=== PATIENT | female | born 1960 | race Two or more races ===

== ENCOUNTER 2024-02-05 22:48 | Emergency (ER) | payer OTHER ==
[~2024-02-05] VITALS: Ht 157.5 cm; Wt 49.9 kg
[~2024-02-05 22:48] MED LIST: TOPROL XL25 MG PO
[2024-02-05] MEDS ORDERED: FAMOTIDINE/PF 20 MG in 0.9 % SODIUM CHLORIDE 8 ML IV PUSH STA (23:18)
[2024-02-05] MEDS ORDERED: PIPERACILLIN/TAZOBACTAM SODIUM 3.375 GM VIAL IV ONE ×2 (23:24→23:30)
[2024-02-05] MEDS ORDERED: BARIUM SULFATE 450 ML ORAL.SUSP PO ONE (23:24)
[2024-02-05] MEDS ORDERED: FAMOtidine 200mg/20ml VIAL ONE (23:24)
[2024-02-05] MEDS ORDERED: KETOROLAC TROMETHAMINE 30 MG VIAL ONE (23:24)
[2024-02-05] MEDS ORDERED: KETOROLAC TROMETHAMINE 30 MG VIAL IV ONE (23:30)
[2024-02-05] MEDS ORDERED: 0.9 % SODIUM CHLORIDE 1,000 ML IV SCH (23:30)
[2024-02-05 23:50] LABS: HEMATOCRIT 38.7 % (36.0-45.00); HEMOGLOBIN 12.7 g/dL (12.0-15.00); MEAN CELL VOLUME 86.6 fL (80.00-100.00); MEAN CORPUSCULAR HEMOGLOBIN 28.5 pg (27.00-32.0); MEAN CORPUSCULAR HGB CONC 32.8 g/dl (32.0-36.0); PLATELET COUNT 260 K/uL (150-450); RED BLOOD COUNT 4.47 M/uL (4.00-6.00)
[2024-02-06 00:13] LABS: ALBUMIN 3.6 gm/dL (3.4-5.0); BILIRUBIN TOTAL 0.48 mg/dL (0.3-1.2); BILIRUBIN,CONJUGATED 0.13 mg/dL (0.0-0.2); BILIRUBIN,UNCONJUGATED 0.35 mg/dL (0.0-0.6); CALCIUM 8.7 mg/dL (8.5-10.1); CREATININE SERUM 0.92 mg/dL (0.55-1.02); GFR 61.26; POTASSIUM 3.57 mEq/L (3.5-5.1); TOTAL PROTEIN 7.6 gm/dL (6.4-8.2)
[2024-02-06 01:03] LABS: PH,URINE 6.5 (5.0-8.0); URINE APPEARANCE Clear; URINE BILIRRUBIN Negative (NEGATIVE); URINE BLOOD Negative; URINE COLOR Yellow; URINE GLUCOSE Negative (NEGATIVE); URINE LEUKOCYTE Trace; URINE NITRATE Negative; URINE PROTEIN Negative (NEGATIVE)
[2024-02-06 01:07] LABS: URINE BACTERIA 2918.9 uL (0.0-1933); URINE EPITHELIAL CELLS 1.5 uL (0.0-38.8); URINE RBC 10.9 uL (0.0-20.8); URINE WBC 21.4 uL (0.0-23.2)
[2024-02-06] MEDS ORDERED: ONDANSETRON ODT4 MG PO (05:17)
[2024-02-06] MEDS ORDERED: LEVSIN/SL0.125 MG SL (05:17)
[2024-02-06] MEDS ORDERED: CIPRO500 MG PO (05:17)
[2024-02-06] MEDS ORDERED: INTESTINEX680 M2 PO (05:20)
== END 2024-02-06 05:28 ==
LOC: ER 22:48
PROVIDERS: General Practice
DX: U07.1 COVID-19 (principal); R10.32 Left lower quadrant pain; I10 Essential (primary) hypertension
CPT/HCPCS: 36415; 74177; 96365; 96366; 99284; J1885; J2543; J7030; Q9965

== ENCOUNTER 2024-02-20 09:46 | Outpatient (CLI) | payer OTHER ==
[~2024-02-20 09:46] MED LIST changes: +CIPRO500 MG PO; +INTESTINEX680 M2 PO; +LEVSIN/SL0.125 MG SL; +ONDANSETRON ODT4 MG PO
[2024-02-20 11:05] LABS: HEMATOCRIT 38.1 % (36.0-45.00); HEMOGLOBIN 12.7 g/dL (12.0-15.00); MEAN CELL VOLUME 86.4 fL (80.00-100.00); MEAN CORPUSCULAR HEMOGLOBIN 28.8 pg (27.00-32.0); MEAN CORPUSCULAR HGB CONC 33.4 g/dl (32.0-36.0); PLATELET COUNT 269 K/uL (150-450); RED BLOOD COUNT 4.42 M/uL (4.00-6.00); RED CELL DISTRIBUTION WIDTH 13.7 % (11.5-14.5)
[2024-02-20 11:06] LABS: INR 1.04; PARTIAL THROMBOPLASTIN TIME 22.5 SECONDS (22.0-34.0); PROTHROMBIN TIME 10.9 SECONDS (9.0-11.5)
[2024-02-20 11:31] LABS: ALBUMIN 3.7 gm/dL (3.4-5.0); BILIRUBIN TOTAL 0.97 mg/dL (0.3-1.2); CALCIUM 9.2 mg/dL (8.5-10.1); CREATININE SERUM 0.7 mg/dL (0.55-1.02); GFR 83.72; GLOBULINA 3.1 G/DL (2.4-3.5); POTASSIUM 3.63 mEq/L (3.5-5.1); TOTAL PROTEIN 6.8 gm/dL (6.4-8.2)
== END 2024-02-20 09:47 | disposition home or self-care (01) ==
LOC: LAB 09:46
PROVIDERS: ATTEND Internal Medicine
DX: C18.7 Malignant neoplasm of sigmoid colon (principal); K62.7 Radiation proctitis; R74.8 Abnormal levels of other serum enzymes

== ENCOUNTER 2024-02-20 10:03 | Outpatient (CLI) | payer OTHER | END 2024-02-20 10:04 | disposition home or self-care (01) | LOC: TOM 10:03 | PROVIDERS: ATTEND Internal Medicine | DX: C18.7 Malignant neoplasm of sigmoid colon (principal); R10.13 Epigastric pain; K63.4 Enteroptosis; R19.4 Change in bowel habit | CPT/HCPCS: 74178; Q9965 ==

== ENCOUNTER 2024-02-27 09:30 | Inpatient (IN) | payer OTHER ==
[2024-02-27 09:09] LABS: URINE APPEARANCE Clear; URINE BILIRRUBIN Negative (NEGATIVE); URINE BLOOD Small; URINE COLOR Yellow; URINE GLUCOSE Negative (NEGATIVE); URINE KETONE Negative (NEGATIVE); URINE LEUKOCYTE Small; URINE NITRATE Negative; URINE PROTEIN Negative (NEGATIVE); URINE UROBILINOGEN 0.2 E.U./dl
[2024-02-27 09:10] LABS: URINE BACTERIA 31.4 uL (0.0-1933); URINE RBC 14.1 uL (0.0-20.8); URINE WBC 65.4 uL (0.0-23.2)
[2024-02-27 09:42] LABS: HEMATOCRIT 41.1 % (36.0-45.00); HEMOGLOBIN 13.3 g/dL (12.0-15.00); MEAN CELL VOLUME 87.7 fL (80.00-100.00); MEAN CORPUSCULAR HEMOGLOBIN 28.4 pg (27.00-32.0); MEAN CORPUSCULAR HGB CONC 32.4 g/dl (32.0-36.0); PLATELET COUNT 276 K/uL (150-450); RED BLOOD COUNT 4.68 M/uL (4.00-6.00); RED CELL DISTRIBUTION WIDTH 13.8 % (11.5-14.5)
[2024-02-27 09:46] LABS: INR 0.97; PARTIAL THROMBOPLASTIN TIME 27.1 SECONDS (22.0-34.0); PROTHROMBIN TIME 10.2 SECONDS (9.0-11.5)
[2024-02-27 09:52] LABS: ALBUMIN 3.8 gm/dL (3.4-5.0); BILIRUBIN TOTAL 0.47 mg/dL (0.3-1.2); CALCIUM 9.4 mg/dL (8.5-10.1); CREATININE SERUM 0.76 mg/dL (0.55-1.02); GFR 76.14; GLOBULINA 3.5 G/DL (2.4-3.5); POTASSIUM 4.07 mEq/L (3.5-5.1); TOTAL PROTEIN 7.3 gm/dL (6.4-8.2)
[2024-02-27] MEDS ORDERED: CRESTOR 10MG (09:53)
[2024-02-27] MEDS ORDERED: LOPID 600MG (09:53)
[2024-03-05] MEDS ORDERED: CEFTRIAXONE SODIUM 2,000 MG VIAL ONE (09:52)
[2024-03-05] MEDS ORDERED: METRONIDAZOLE/SODIUM CHLORIDE 500 MG/100 ML PIGGYBACK IV ONE ×2 (09:52→15:52)
[2024-03-05] MEDS ORDERED: GEMFIBROZIL600 MG (10:15)
[2024-03-05] MEDS ORDERED: ROSUVASTATIN CA10 MG (10:15)
[2024-03-05] MEDS ORDERED: MAXIMUM D3325 MCG (10:15)
[2024-03-05] MEDS ORDERED: BUPIVACAINE HCL/MPF 0.5% 30ML VIAL ONE (11:19)
[2024-03-05] MEDS ORDERED: LIDOCAINE HCL 1%/EPINEPHRINE 20ML VIAL IJ ONE ×2 (11:20→12:00)
[2024-03-05] MEDS ORDERED: BUPIVACAINE HCL 30 ML VIAL IJ ONE (12:00)
[2024-03-05] MEDS ORDERED: CEFTRIAXONE SODIUM 2,000 MG in 0.9 % SODIUM CHLORIDE 50 ML IV ONE (12:00)
[2024-03-05] MEDS ORDERED: METRONIDAZOLE/SODIUM CHLORIDE 200 ML IV ONE (12:00)
[2024-03-05] MEDS ORDERED: 0.9 % SODIUM CHLORIDE 1,000 ML IV SCH (13:30)
[2024-03-05] MEDS ORDERED: MORPHINE SULFATE 4 MG/ML CARTRIDGE IV PRN (13:30)
[2024-03-05] MEDS ORDERED: DEXTROSE 50 % IN WATER 0.5 G/ML DISP.SYRIN IV PRN (13:30)
[2024-03-05] MEDS ORDERED: OxyCODONE HCL 5 MG TABLET (ROXICODONE) PO PRN (13:30)
[2024-03-05] MEDS ORDERED: ONDANSETRON HCL 2 MG/ML VIAL IV PRN (13:30)
[2024-03-05] MEDS ORDERED: SUGAMMADEX SODIUM 200 MG/2 ML VIAL IV ONE (13:43)
[2024-03-05] MEDS ORDERED: ACETAMINOPHEN 500 MG GEL..CAP PO SCH (14:00)
[2024-03-05] MEDS ORDERED: ONDANSETRON HCL 2 MG/ML VIAL ONE (14:15)
[2024-03-05 15:12] LABS: HEMOGLOBIN 12.8 g/dL (12.0-15.00); MEAN CELL VOLUME 88.9 fL (80.00-100.00); MEAN CORPUSCULAR HEMOGLOBIN 29.1 pg (27.00-32.0); MEAN CORPUSCULAR HGB CONC 32.7 g/dl (32.0-36.0); PLATELET COUNT 248 K/uL (150-450); RED BLOOD COUNT 4.39 M/uL (4.00-6.00); RED CELL DISTRIBUTION WIDTH 13.8 % (11.5-14.5)
[2024-03-05 15:36] LABS: CALCIUM 8.5 mg/dL (8.5-10.1); CREATININE SERUM 0.73 mg/dL (0.55-1.02); GFR 79.76; MAGNESIUM 1.9 mg/dL (1.8-2.4); PHOSPHOROUS 3.6 mg/dL (2.5-4.9); POTASSIUM 3.76 mEq/L (3.5-5.1)
[2024-03-05] MEDS ORDERED: POLYETHYLENE GLYCOL 3350 17 GM BLIST.PACK PO SCH (17:00)
[2024-03-05] MEDS ORDERED: METRONIDAZOLE/SODIUM CHLORIDE 500 MG/100 ML PIGGYBACK IV SCH (17:00)
[2024-03-05] MEDS ORDERED: HYOSCYAMINE SULFATE 0.125 MG TAB.SUBL SL SCH (17:00)
[2024-03-05] MEDS ORDERED: GABAPENTIN 300 MG CAPSULE PO SCH (17:00)
[2024-03-05] MEDS ORDERED: FAMOTIDINE/PF 20 MG/2 ML VIAL IV PUSH SCH (21:00)
[2024-03-06 06:58] LABS: HEMATOCRIT 28.6 % (36.0-45.00); MEAN CELL VOLUME 85.1 fL (80.00-100.00); MEAN CORPUSCULAR HGB CONC 33.8 g/dl (32.0-36.0); PLATELET COUNT 223 K/uL (150-450); RED BLOOD COUNT 3.36 M/uL (4.00-6.00); RED CELL DISTRIBUTION WIDTH 13.6 % (11.5-14.5)
[2024-03-06 06:59] LABS: HEMOGLOBIN 9.7 g/dL (12.0-15.00); MEAN CORPUSCULAR HEMOGLOBIN 28.8 pg (27.00-32.0)
[2024-03-06 07:18] LABS: ALBUMIN 2.2 gm/dL (3.4-5.0); CALCIUM 7.7 mg/dL (8.5-10.1); CREATININE SERUM 0.54 mg/dL (0.55-1.02); GFR 112.95; MAGNESIUM 1.8 mg/dL (1.8-2.4); PHOSPHOROUS 2.5 mg/dL (2.5-4.9); POTASSIUM 3.73 mEq/L (3.5-5.1)
[2024-03-06] MEDS ORDERED: AMINOCAPROIC ACID 250 MG/ML VIAL IV STA (08:32)
[2024-03-06] MEDS ORDERED: SOD FERRIC GLUC COMPLX/SUCROSE 62.5 MG in 0.9 % SODIUM CHLORIDE 50 ML IV SCH (09:00)
[2024-03-06] MEDS ORDERED: Cyanocobalamin/Mecobalamin 1 TAB.SL SL SCH (09:00)
[2024-03-06] MEDS ORDERED: METOPROLOL SUCCINATE 25 MG TAB.SR.24H PO SCH (12:00)
[2024-03-06 12:35] LABS: HEMATOCRIT 30.7 % (36.0-45.00); HEMOGLOBIN 10.1 g/dL (12.0-15.00); MEAN CELL VOLUME 85.9 fL (80.00-100.00); MEAN CORPUSCULAR HEMOGLOBIN 28.2 pg (27.00-32.0); MEAN CORPUSCULAR HGB CONC 32.8 g/dl (32.0-36.0); PLATELET COUNT 237 K/uL (150-450); RED BLOOD COUNT 3.57 M/uL (4.00-6.00); RED CELL DISTRIBUTION WIDTH 13.7 % (11.5-14.5)
[2024-03-06] MEDS ORDERED: PATIENTS OWN MEDICATION (MEDICAMENTO EN PISO) PO SCH (17:00)
[2024-03-06] MEDS ORDERED: ENOXAPARIN SODIUM 40 MG/0.4 ML SYRINGE SUBCUTANEO SCH (17:00)
[2024-03-06] MEDS ORDERED: GABAPENTIN 100 MG CAPSULE PO SCH (17:00)
[2024-03-06] MEDS ORDERED: GABAPENTIN 300 MG CAPSULE PO SCH (21:00)
[2024-03-07] MEDS ORDERED: ENOXAPARIN SODIUM 40 MG/0.4 ML SYRINGE SUBCUTANEO SCH (09:00)
[2024-03-07 09:04] LABS: HEMOGLOBIN 9.6 g/dL (12.0-15.00); MEAN CELL VOLUME 86.7 fL (80.00-100.00); MEAN CORPUSCULAR HEMOGLOBIN 28.8 pg (27.00-32.0); MEAN CORPUSCULAR HGB CONC 33.3 g/dl (32.0-36.0); PLATELET COUNT 234 K/uL (150-450); RED BLOOD COUNT 3.34 M/uL (4.00-6.00); RED CELL DISTRIBUTION WIDTH 13.5 % (11.5-14.5)
[2024-03-07 09:29] LABS: CALCIUM 7.9 mg/dL (8.5-10.1); CREATININE SERUM 0.4 mg/dL (0.55-1.02); GFR 159.7; MAGNESIUM 2.1 mg/dL (1.8-2.4); POTASSIUM 3.65 mEq/L (3.5-5.1)
[2024-03-07 10:26] LABS: PHOSPHOROUS 1.7 mg/dL (2.5-4.9)
[2024-03-07] MEDS ORDERED: POTASSIUM PHOS,M-BASIC-D-BASIC 15 MM in 0.9 % SODIUM CHLORIDE 250 ML IV NR (10:30)
[2024-03-08] MEDS ORDERED: ENOXAPARIN SODIUM 40 MG/0.4 ML SYRINGE SUBCUTANEO SCH (09:00)
[2024-03-08] MEDS ORDERED: ACETAMINOPHEN500 M2 PO (09:53)
[2024-03-08] MEDS ORDERED: NEURONTIN300 MG PO (09:53)
== END 2024-03-08 13:33 | disposition home or self-care (01) | DRG 330 ==
LOC: O/R 03-05 06:05 → SURH 03-05 06:05 → SURG 03-05 18:57
PROVIDERS: Colon & Rectal Surgery; Internal Medicine Geriatric Medicine; ADMIT Surgery; ATTEND Surgery
PROC: 0DBP4ZZ Excision of Rectum, Percutaneous Endoscopic Approach (ICD-10-PCS; 2024-03-05)
PROC: 07BC4ZZ Excision of Pelvis Lymphatic, Percutaneous Endoscopic Approach (ICD-10-PCS; 2024-03-05)
PROC: 0DJD8ZZ Inspection of Lower Intestinal Tract, Via Natural or Artificial Opening Endoscopic (ICD-10-PCS; 2024-03-05)
PROC: 0DTN4ZZ Resection of Sigmoid Colon, Percutaneous Endoscopic Approach (ICD-10-PCS; principal; 2024-03-05 09:15)
DX: C18.6 Malignant neoplasm of descending colon (principal); K56.690 Other partial intestinal obstruction; R19.4 Change in bowel habit; R59.0 Localized enlarged lymph nodes

== ENCOUNTER 2024-04-17 08:42 | Outpatient (CLI) | payer OTHER ==
[~2024-04-17 08:42] MED LIST changes: +ACETAMINOPHEN500 M2 PO; +CRESTOR 10MG; +GEMFIBROZIL600 MG; +LOPID 600MG; +MAXIMUM D3325 MCG; +NEURONTIN300 MG PO; +ROSUVASTATIN CA10 MG
[2024-04-17 09:47] LABS: HEMATOCRIT 36.7 % (36.0-45.00); HEMOGLOBIN 12.1 g/dL (12.0-15.00); MEAN CELL VOLUME 87.3 fL (80.00-100.00); MEAN CORPUSCULAR HEMOGLOBIN 28.7 pg (27.00-32.0); MEAN CORPUSCULAR HGB CONC 32.9 g/dl (32.0-36.0); PLATELET COUNT 229 K/uL (150-450); RED CELL DISTRIBUTION WIDTH 14.8 % (11.5-14.5)
[2024-04-17 10:06] LABS: ALBUMIN 3.8 gm/dL (3.4-5.0); BILIRUBIN TOTAL 0.61 mg/dL (0.3-1.2); CALCIUM 8.9 mg/dL (8.5-10.1); CREATININE SERUM 0.72 mg/dL (0.55-1.02); GFR 81.04; GLOBULINA 3.2 G/DL (2.4-3.5); POTASSIUM 4.07 mEq/L (3.5-5.1)
== END 2024-04-17 08:48 | disposition home or self-care (01) ==
LOC: LAB 08:42
PROVIDERS: ATTEND Internal Medicine
DX: C18.7 Malignant neoplasm of sigmoid colon (principal)

== ENCOUNTER 2024-04-17 09:18 | Outpatient (CLI) | payer OTHER | END 2024-04-17 10:52 | disposition home or self-care (01) | LOC: TOM 09:18 | PROVIDERS: ATTEND Internal Medicine | DX: C18.7 Malignant neoplasm of sigmoid colon (principal) | CPT/HCPCS: 71270; 74178; Q9965 ==

== ENCOUNTER 2024-08-24 08:30 | Emergency (ER) | payer OTHER ==
[~2024-08-24] VITALS: Ht 157.5 cm; Wt 50.8 kg
[2024-08-24] MEDS ORDERED: GEMFIBROZIL600 MG PO (08:53)
[2024-08-24 09:38] LABS: HEMOGLOBIN 13.2 g/dL (12.0-15.00); MEAN CELL VOLUME 90.2 fL (80.00-100.00); MEAN CORPUSCULAR HEMOGLOBIN 29.1 pg (27.00-32.0); MEAN CORPUSCULAR HGB CONC 32.3 g/dl (32.0-36.0); PLATELET COUNT 209 K/uL (150-450); RED BLOOD COUNT 4.54 M/uL (4.00-6.00); RED CELL DISTRIBUTION WIDTH 13.3 % (11.5-14.5)
[2024-08-24 09:57] LABS: URINE APPEARANCE Clear; URINE BILIRRUBIN Negative (NEGATIVE); URINE BLOOD Negative; URINE COLOR Yellow; URINE GLUCOSE Negative (NEGATIVE); URINE KETONE Negative (NEGATIVE); URINE LEUKOCYTE Negative; URINE NITRATE Negative; URINE PROTEIN Negative (NEGATIVE); URINE UROBILINOGEN 0.2 E.U./dl
[2024-08-24 09:59] LABS: URINE BACTERIA 9.7 uL (0.0-1933); URINE EPITHELIAL CELLS 2.6 uL (0.0-38.8); URINE RBC 8.2 uL (0.0-20.8); URINE WBC 6.9 uL (0.0-23.2)
[2024-08-24 10:06] LABS: CALCIUM 9.5 mg/dL (8.5-10.1); CREATININE SERUM 0.78 mg/dL (0.55-1.02); GFR 73.89; POTASSIUM 3.87 mEq/L (3.5-5.1)
[2024-08-24 10:21] LABS: URINE CAST 0.14 uL (0.0-1.40)
[2024-08-24] MEDS ORDERED: KETOROLAC TROMETHAMINE 15 MG VIAL IM STA (12:51)
[2024-08-24] MEDS ORDERED: KETOROLAC TROMETHAMINE 30 MG VIAL ONE (12:52)
[2024-08-24] MEDS ORDERED: PEPCID20 MG PO (13:07)
[2024-08-24] MEDS ORDERED: DICLOFENAC POTA50 MG PO (13:07)
== END 2024-08-24 13:28 | disposition home or self-care (01) ==
LOC: ER 08:32
PROVIDERS: Emergency Medicine
DX: R10.9 Unspecified abdominal pain (principal); Z85.048 Personal history of other malignant neoplasm of rectum, rectosigmoid junction, and anus
CPT/HCPCS: 36415; 74177; 96372; 99284; J1885; Q9965

== ENCOUNTER 2024-09-29 06:12 | Outpatient (CLI) | payer OTHER ==
[~2024-09-29 06:12] MED LIST changes: +DICLOFENAC POTA50 MG PO; +GEMFIBROZIL600 MG PO; +PEPCID20 MG PO
[2024-09-29 07:19] LABS: HEMATOCRIT 40.9 % (36.0-45.00); HEMOGLOBIN 13.1 g/dL (12.0-15.00); MEAN CELL VOLUME 90.8 fL (80.00-100.00); PLATELET COUNT 231 K/uL (150-450); RED BLOOD COUNT 4.51 M/uL (4.00-6.00); RED CELL DISTRIBUTION WIDTH 13.9 % (11.5-14.5)
[2024-09-29 07:32] LABS: ALBUMIN 3.7 gm/dL (3.4-5.0); BILIRUBIN TOTAL 0.6 mg/dL (0.3-1.2); CREATININE SERUM 0.76 mg/dL (0.55-1.02); GFR 76.14; GLOBULINA 3.5 G/DL (2.4-3.5); POTASSIUM 4.08 mEq/L (3.5-5.1); TOTAL PROTEIN 7.2 gm/dL (6.4-8.2)
== END 2024-09-29 06:17 | disposition home or self-care (01) ==
LOC: LAB 06:12 → EDBD 06:12 → LAB 06:17
PROVIDERS: ATTEND Surgery
DX: R19.4 Change in bowel habit (principal); C18.6 Malignant neoplasm of descending colon; K56.690 Other partial intestinal obstruction

== ENCOUNTER 2024-09-29 07:07 | Outpatient (CLI) | payer OTHER | END 2024-09-29 08:32 | disposition home or self-care (01) | LOC: TOM 07:07 | PROVIDERS: ATTEND Surgery | DX: R19.4 Change in bowel habit (principal); C18.6 Malignant neoplasm of descending colon; K56.690 Other partial intestinal obstruction; C18.9 Malignant neoplasm of colon, unspecified | CPT/HCPCS: 71260; 74177; Q9965 ==

== ENCOUNTER → 2025-06-07 11:16 | Outpatient (CLI) | payer OTHER ==
[2025-06-07 13:18] LABS: CREATININE SERUM 0.83 mg/dL (0.55-1.02)
== END | disposition home or self-care (01) ==
LOC: LAB 11:16
PROVIDERS: ATTEND Radiology Diagnostic Radiology
DX: C18.7 Malignant neoplasm of sigmoid colon (principal)

== ENCOUNTER 2025-06-11 07:00 | Outpatient (CLI) | payer OTHER ==
[2025-06-11 07:53] LABS: BASO % 0.4 % (0.1-1.2); EOS # 0.28 (0.04-0.54); EOS % 5.4 % (0.7-7.0); LYMPH # 1.95 (1.18-3.74); LYMPH % 37.4 % (19.3-53.1); MEAN PLATELET VOLUME 10.70 fl (9.4-12.4); MONO # 0.43 (0.24-0.82); MONO % 8.2 % (4.7-12.5); NEUT # 2.53 (1.56-6.13); NEUT % 48.4 % (34.0-71.1); RED CELL DISTRIBUTION WIDTH 12.3 % (11.6-14.4)
[2025-06-11 08:55] LABS: ALT/SGPT 27.0 U/L (12-78); AST/SGOT 15.0 U/L (15-37); BILIRUBIN TOTAL 0.61 mg/dL (0.3-1.2); BUN CREA RATIO 23.0 (7.0-25.0); CREATININE SERUM 0.74 mg/dL (0.55-1.02); GFR 78.28; GLOBULINA 3.2 G/DL (2.4-3.5); GLUCOSE FASTING 84.0 mg/dL (65-100); OSMOLALITY SERUM 289.0 MOSM/KG (275-295)
== END 2025-06-11 07:05 | disposition home or self-care (01) ==
LOC: LAB 07:00
DX: C18.7 Malignant neoplasm of sigmoid colon (principal)

== ENCOUNTER 2025-06-11 07:44 | Outpatient (CLI) | payer OTHER | END 2025-06-11 08:01 | disposition home or self-care (01) | LOC: SONOGRAMA 07:44 | DX: C18.7 Malignant neoplasm of sigmoid colon (principal) | CPT/HCPCS: 71270; 74178; Q9965 ==